=== PATIENT | female | born 1955 | race Caucasian/White ===

== ENCOUNTER → 2020-09-27 | Outpatient (CLI) | payer BC ==
[~2020-09-27] MED LIST: ASPI-630 PO; ATOR20TA PO; GABA600T PO; LISI10TA2 PO; MELO15TA6 PO; MULT-246 PO; PIOG45TA40 PO; SAXA1TBM3 PO
== END ==
LOC: LAB 12:46
PROVIDERS: ATTEND Orthopaedic Surgery
DX: Z01.812 Encounter for preprocedural laboratory examination (principal); Z20.828 Contact with and (suspected) exposure to other viral communicable diseases
CPT/HCPCS: U0003

== ENCOUNTER 2020-09-30 06:02 | Day surgery (SDC) | payer BC ==
[~2020-09-30] VITALS: Ht 165.1 cm; Wt 134.0 kg
[~2020-09-30 06:02] MED LIST changes: +ceFAZolin SODIUM 3 GM in IV DEXTROSE 5% 100ML 100 ML IV PRN
[2020-09-30] MEDS: INSULIN LISPRO 100 UNIT/ML 3ML VIAL for OP,RR ONLY. SQ PRN ×2 (06:55→09:11)
[2020-09-30] MEDS ORDERED: MORPHINE SULFATE 2 MG/ML VIAL. IV PRN (07:00)
[2020-09-30] MEDS ORDERED: fentaNYL PF VIAL 100 MCG/2 ML VIAL IV PRN (07:00)
[2020-09-30] MEDS ORDERED: HYDROmorphone 2 MG/ML VIAL IV PRN (07:00)
[2020-09-30] MEDS ORDERED: IV RINGERS,LACTATED 1000ML 1,000 ML IV SCH (07:00)
[2020-09-30] MEDS ORDERED: PROCHLORPERAZINE 10 MG/2 ML VIAL. IV PRN (07:00)
[2020-09-30] MEDS ORDERED: ONDANSETRON PF 4 MG/2 ML VIAL. IV PRN (07:00)
[2020-09-30] MEDS ORDERED: BUPIVACAINE MPF 0.25% 30 ML VIAL. ONE ×2 (07:04)
[2020-09-30] MEDS ORDERED: EPINEPHrine VIAL 30 MG/30 ML VIAL ONE (07:06)
[2020-09-30] MEDS ORDERED: fentaNYL PF VIAL 100 MCG/2 ML VIAL ONE ×2 (07:06→08:48)
[2020-09-30] MEDS ORDERED: BUPIVACAINE-EPI 0.25%-1:200000 MPF 30 ML VIAL. INJ ONE ×2 (07:15)
[2020-09-30] MEDS ORDERED: SCOPOLAMINE 1.5MG PATCH. TD ONE ×2 (07:18→07:30)
--- NOTE | 2020-09-30 07:48 | PDOC1 ---
History and Physical Date of Admission Date of Admission DATE: 09/30/20 TIME: 07:41 Identification/Chief Complaint Chief Complaint left knee pain Source Source: Chart review, Patient History of Present Illness History of Present Illness 64-year-old with left knee pain. 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 She describes an injury in November 2019 when she fell onto her left knee after her right knee gave out. She locates medial joint line pain after falling onto concrete. Denies any known remote injury. She has had a cortisone injection ("which didn't do anything") although physical therapy helped some. She still has sharp pains in her knee. Past Medical History Endocrine: Diabetes Past Surgical History Past Surgical History tonsillectomy lump removal, left ear and foot. section x2 diskectomy - cspine Left wrist ORIF Family History Family History: Cancer, Stroke Social History Smoke: No ALCOHOL: none Current Medications Current Medications Current Medications Ondansetron HCl (Zofran) 4 mg PRN Q6HRS PRN IV NAUSEA/VOMITING; Start 09/30/20 at 07:00; Stop 10/01/20 at 06:59 Fentanyl Citrate (Fentanyl 2ml Vial) 25 mcg PRN Q5MIN PRN IV MILD PAIN 1-3; Start 09/30/20 at 07:00; Stop 10/01/20 at 06:59 Fentanyl Citrate (Fentanyl 2ml Vial) 50 mcg PRN Q5MIN PRN IV MODERATE TO SEVERE PAIN; Start 09/30/20 at 07:00; Stop 10/01/20 at 06:59 Morphine Sulfate (Morphine Sulfate) 1 mg PRN Q10MIN PRN IV SEVERE PAIN 7-10; Start 09/30/20 at 07:00; Stop 10/01/20 at 06:59 Ringer's Solution 1,000 ml @ 30 mls/hr Q24H IV Last administered on 09/30/20at 06:55; Start 09/30/20 at 07:00; Stop 09/30/20 at 18:59 Hydromorphone HCl (Dilaudid) 0.5 mg PRN Q10MIN PRN IV SEV PAIN, Second choice; Start 09/30/20 at 07:00; Stop 10/01/20 at 06:59 Prochlorperazine Edisylate (Compazine) 5 mg PACU PRN PRN IV NAUSEA, MRX1; Start 09/30/20 at 07:00; Stop 10/01/20 at 06:59 Cefazolin Sodium 3 gm/Dextrose 100 ml @ 200 mls/hr 1X PREOP PRN IV PRIOR TO PROCEDURE; Start 09/30/20 at 06:00; Stop 09/30/20 at 15:00 Insulin Human Lispro (HumaLOG VIAL for OP,RR ONLY) 0-10 units PRN Q1HR PRN SQ PER PROTOCOL Last administered on 09/30/20at 06:55; Start 09/30/20 at 06:30; Stop 10/01/20 at 06:29 Bupivacaine HCl (Sensorcaine Mpf 0.25%) 30 ml STK-MED ONCE .ROUTE ; Start 09/30/20 at 07:04; Stop 09/30/20 at 07:05; Status DC Bupivacaine HCl (Sensorcaine Mpf 0.25%) 30 ml STK-MED ONCE .ROUTE ; Start 09/30/20 at 07:04; Stop 09/30/20 at 07:05; Status DC Epinephrine HCl (Adrenalin) 30 mg STK-MED ONCE .ROUTE ; Start 09/30/20 at 07:06; Stop 09/30/20 at 07:06; Status DC Fentanyl Citrate (Fentanyl 2ml Vial) 100 mcg STK-MED ONCE .ROUTE ; Start 09/30/20 at 07:06; Stop 09/30/20 at 07:06; Status DC Bupivacaine HCl/ Epinephrine Bitart (Sensorcaine-Epi 0.25%-1:[id number] Mpf) 30 ml 1X ONCE INJ ; Start 09/30/20 at 07:15; Stop 09/30/20 at 07:16; Status DC Bupivacaine HCl/ Epinephrine Bitart (Sensorcaine-Epi 0.25%-1:197531 Mpf) 30 ml 1X ONCE INJ ; Start 09/30/20 at 07:15; Stop 09/30/20 at 07:16; Status DC Scopolamine (Transderm-Scop) 1 patch STK-MED ONCE TD ; Start 09/30/20 at 07:18; Stop 09/30/20 at 07:19; Status DC Scopolamine (Transderm-Scop) 1 patch 1X ONCE TD Last administered on 09/30/20at 07:24; Start 09/30/20 at 07:30; Stop 09/30/20 at 07:31; Status DC Active Scripts Active Reported Actos (Pioglitazone Hcl) 45 Mg Tablet 45 Mg PO DAILY Multi-Vitamin Daily (Multivitamin) 1 Each Tablet 1 Each PO DAILY Aspirin 81 Mg Tab.chew 81 Mg PO DAILY Lipitor (Atorvastatin Calcium) 20 Mg Tablet 20 Mg PO HS Neurontin (Gabapentin) 600 Mg Tablet 150 Mg PO HS Mobic (Meloxicam) 15 Mg Tablet 15 Mg PO DAILY Lisinopril 10 Mg Tablet 10 Mg PO HS Kombiglyze Xr 5-1,000 Mg Tab (Saxagliptin Hcl/Metformin Hcl) 1 Each Tbmp.24hr 1 Each PO DAILYAC Allergies Allergies: Coded Allergies: No Known Drug Allergies (Unverified , 09/30/20) ROS Review of System OPHTHALMOLOGY: Blurred vision none. Double vision denies. Change in vision none. ENT: Hearing loss none. Change in voice denies. Rhinorrhea none. CARDIOLOGY: Palpitations none. Shortness of breath denies. Chest pain denies. CONSTITUTIONAL: Fever denies. Chills denies. Weight gain denies. Weakness none. weight loss denies. Fatigue none. GASTROENTEROLOGY: Diarrhea denies. Vomiting none. Dysphagia none. UROLOGY: Voiding normally yes. Hematuria none. MUSCULOSKELETAL: Chronic back or neck pain denies. Swelling of the feet, hands, ankles and /or legs denies. Joint pain left knee. Tingling/numbness no. DERMATOLOGY: Rash denies. Lumps none. NEUROLOGY: Dizziness/lightheadedness denies. Double vision, temporary blindness denies. Tingling/numbness none. PSYCHOLOGY: Change in mood or personality denies. Memory loss none. ENDOCRINOLOGY: Obesity denies. Fatigue none. Weight loss none. HEMATOLOGY/LYMPH: Hepatitis denies. Enlarged lymph nodes denies. Physical Exam General: Alert, Cooperative HEENT: Atraumatic Lungs: Normal air movement Heart: RRR Abdomen: Soft Extremities: No cyanosis, Normal pulses, Other (The LEFT knee shows normal alignment, no masses and no effusion. The medial joint line shows tenderness. The lateral joint line shows no tenderness. Range of motion is 0-110 degrees. There is trace patellofemoral crepitus. Vikas's test is positive. There is medial joint line pain with deep flexion and especially with rotation of the tibia. The knee is stable to varus and valgus stress without subluxation or laxity. The ACL feels intact on Olivia testing. Muscle strength is normal (5/5) for quadriceps and hamstrings, and muscle tone is normal. Negative posterior drawer. The skin is normal with no scars, rashes, lesions or ulcers. Light touch sensation is intact. No edema and no varicosities. Dorsalis pedis pulse is intact and capillary refill is normal.) Skin: No rashes Neuro: Normal speech, Sensation intact, Other Vitals Vitals Vital Signs Date Time Temp Pulse Resp B/P (MAP) Pulse Ox O2 Delivery O2 Flow Rate FiO2 09/30/20 06:53 97.0 92 20 135/65 95 Room Air 97.0 Labs Labs Laboratory Tests Test 09/30/20 06:45 Glucose (Fingerstick) 130 mg/dL (70-99) Laboratory Tests Test 09/30/20 06:45 Glucose (Fingerstick) 130 mg/dL (70-99) Images Images Report reviewed and images independently reviewed of the left knee MRI 07/11/2020. Medial meniscus subluxation is seen on series 7 image 24. The radial root tear of the medial meniscus is seen on series 7 image 18, and on series 9 image 8. I reviewed the knee x-rays taken 12/23/2019. Minimal degenerative changes, including the upright AP x-ray with minimal joint space narrowing and trace osteophytic lipping on the medial femoral condyle. Left knee MRI report on 07/11/20 obtained and personally reviewed. Impression: 1. Prominent defect at the root of the posterior horn medial meniscus either fr om prior meniscectomy or flap tear. 2. Old unfused avulsion fracture of the posterior tibial plateau centrally at the PCL attachment. 3. Atrophic/myxoid degenerative PCL. 4. Tricompartmental degenerative changes, greatest at the medial compartment. VTE Prophylaxis Ordered VTE Prophylaxis Devices: Yes VTE Pharmacological Prophylaxi: Yes Assessment/Plan Assessment/Plan Her MRI shows a medial meniscus tear. We reviewed her report together and discussed the natural history of the condition along with the risks, benefits, and alternatives to treatment. Specifically, we discussed the difference in indications for arthroscopy vs total knee arthroplasty; while her MRI shows some chondral loss and she will eventually benefit from total knee arthroplasty, her BMI is a contraindication to knee replacement. We discussed weight loss, and she should weigh 240 pounds or less to have total knee arthroplasty safely given her height. This gives her a BMI of about 40 if she would lose weight. At her current BMI I would not recommend knee arthroplasty and discussed all of this with her. My current recommendation is arthroscopy with meniscectomy. The large majority of her symptoms seem secondary to her meniscus tear over arthritis, and if this were my knee I would prefer arthroscopy to hopefully delay knee replacement to the next 5-10 years. We discussed potential risks of arthroscopic surgery, including risks of bleeding, infection, progressive arthritis, blood clots, or other potential surgical or anesthetic complications. We also discussed postoperative treatment and expectations including progression of arthritis following knee arthroscopy. All of her questions were answered and she desires to proceed with surgery. She is here today for elective left knee arthroscopy and meniscectomy. Justifications for Admission Other Justification KIKE RIDER MD Sep 30, 2020 07:48
[2020-09-30] MEDS ORDERED: FAMOTIDINE 20 MG/2 ML VIAL ONE (08:05)
[2020-09-30] MEDS ORDERED: METOCLOPRAMIDE HCL 10 MG/2 ML VIAL. ONE (08:05)
[2020-09-30] MEDS ORDERED: DEXAMETHASONE SOD PHOS 4 MG/ML VIAL ONE (08:05)
[2020-09-30] MEDS ORDERED: SEVOFLURANE 31 TO 60 MINUTES. IH ONE (08:06)
[2020-09-30] MEDS ORDERED: HYDROcodone/APAP 7.5/325MG 1 TAB TABLET PO ONE ×3 (08:15→09:30)
[2020-09-30] MEDS ORDERED: ONDANSETRON PF 4 MG/2 ML VIAL. ONE (08:16)
[2020-09-30] MEDS ORDERED: PROPOFOL 10 MG/ML (20ML) VIAL. IV ONE (08:17)
[2020-09-30] MEDS ORDERED: HYDR-2765 PO (08:18)
[2020-09-30] MEDS ORDERED: PROM25TA10 PO (08:19)
[2020-09-30] MEDS ORDERED: BUPIVACAINE-EPI 0.5%-1:200000 MPF 30 ML VIAL. INJ ONE ×2 (08:30)
--- NOTE | 2020-09-30 08:50 | PDOC4 ---
Operative Note Operative Note Date of Procedure: September 30, 2020 Preoperative Diagnosis: left knee medial meniscus tear Postoperative Diagnosis: complex tear of medial meniscus, current injury, left knee, initial encounter S83.232A Procedures Performed: left knee arthroscopy, surgical, with meniscectomy, MEDIAL, including meniscal shaving, including debridement/shaving of articular cartilage (chondroplasty) CPT 96176 Surgeon: Kike Mazariegos MD [employer] Technician: LUCIE Summers Anesthesia: General Estimated Blood Loss: 5 mL Specimens: none Drains: none Complications: none Tourniquet time: 24 minutes at 350 mm Hg Indications for Procedure: The patient is a 64-year-old with left knee pain, unrelieved with nonoperative treatment. Exam and MRI are consistent with a meniscus tear. We talked about the risks and benefits of proceeding with an art hroscopic procedure. We talked about potential risks of ongoing pain, progressive arthritis, bleeding, infection, blood clots, or other potential surgical or anesthetic complications. All of the patient's questions about surgery were answered and they desired to proceed. Written consent was obtained. Description of Operation: The patient was identified in the preoperative holding area. The correct left knee was marked by me. The patient was taken to the operating room, where a general anesthetic was used. Preoperative antibiotics were given intravenously. A time-out procedure was performed. A tourniquet was placed on the upper thigh. Local anesthetic 20 mL of 0.25% bupivacaine was injected using sterile technique into the knee joint. The limb was prepared circumferentially with ChloraPrep solution and sterile waterproof arthroscopy drapes were applied. The limb was exsanguinated with an Esmarch bandage and the tourniquet was inflated. Lateral and medial arthroscopy portals were established. The medial meniscus showed a complex unrepairable tear with unstable flaps. A meniscectomy was performed with basket forceps and the motorized shaver back to a smooth stable base, and the resection tapered into the middle one-third of the meniscus. This tear started as a radial root tear which are the most painful medial meniscus tear in my experience. 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 The lateral tibiofemoral joint showed a normal lateral meniscus, so no lateral meniscectomy was required.The lateral articular surfaces showed chondromalacia Outerbridge grade I, so no chondroplasty was required. The patellofemoral joint showed chondromalacia Outerbridge grade III, and a shaving chondroplasty was performed removing unstable fragments of cartilage with the shaver. The suprapatellar pouch, medial and lateral gutters were free of loose bodies. Copious irrigation was used to drain all meniscal and chondral fragments, and the knee was drained of fluid. The portals were closed with #3-0 Prolene interrupted sutures. Additional local anesthetic, 30 mL of 0.5% bupivacaine with epinephrine was injected. A bulky sterile dressing was applied and the tourniquet was released. Needle and sponge counts were correct and there were no apparent complications. KIKE MAZARIEGOS MD Sep 30, 2020 08:50
[2020-09-30] MEDS: fentaNYL PF VIAL 100 MCG/2 ML VIAL IV PRN ×2 (08:53→09:20)
[2020-09-30] MEDS ORDERED: INSULIN LISPRO 100 UNIT/ML 3ML VIAL for OP,RR ONLY. SQ ONE ×2 (09:15)
[2020-09-30] MEDS ORDERED: PROCHLORPERAZINE 10 MG/2 ML VIAL. ONE (09:37)
[2020-09-30 10:22] VITALS: BP 156/67
== END 2020-09-30 11:17 | disposition home or self-care (01) ==
LOC: SURG 06:02
PROVIDERS: ATTEND Orthopaedic Surgery
DX: S83.232A Complex tear of medial meniscus, current injury, left knee, initial encounter (principal); M94.262 Chondromalacia, left knee; I10 Essential (primary) hypertension; E78.00 Pure hypercholesterolemia, unspecified; E66.9 Obesity, unspecified; E11.9 Type 2 diabetes mellitus without complications; Z68.42 Body mass index [BMI] 45.0-49.9, adult; Z79.82 Long term (current) use of aspirin; Z79.899 Other long term (current) drug therapy; Z98.890 Other specified postprocedural states; X58.XXXA Exposure to other specified factors, initial encounter; Y93.89 Activity, other specified; Y92.89 Other specified places as the place of occurrence of the external cause; Y99.8 Other external cause status
CPT/HCPCS: 29881; 82962; J0171; J0780; J1100; J1815; J2405; J2704; J2765; J3010; J3490